=== PATIENT | male | born 1960 | race Caucasian/White ===

== ENCOUNTER 2020-10-03 00:33 | Emergency (ER) | payer OTHER, SELFPAY ==
[2020-10-03 00:42] VITALS: BP 159/104; PULSE 94; RESP 18; TEMP 36.8; O2SAT 97
--- NOTE | 2020-10-03 03:32 | ED.WOUNDLAC ---
HPI - Wound/Laceration General Chief Complaint: Wound/Laceration Stated Complaint: left hand laceration - works on [employer] Time Seen by Provider: 10/03/20 03:32 Source: patient Mode of arrival: Ambulatory History of Present Illness HPI narrative: 60-year-old gentleman with no significant medical history presents noting laceration over the 1st knuckle of the left hand sustained while he was at work on the [employer] this evening. He describes a sharp piece of metal cutting into his hand. He has no numbness and full strength and range of motion with the 1st finger. Related Data Previous Rx's Medication Instructions Recorded cephalexin 500 mg PO TID 7 Days #21 cap 10/03/20 Review of Systems Review of Systems Narrative: No fevers, chills, cough, abdominal pain, nausea, vomiting, diaphoresis Exam Narrative Exam Narrative: General: Alert appropriate in no acute distress Respiratory: Able to speak in full sentences, no obvious respiratory distress Skin: No obvious rashes, warm and dry Neurologic: Grossly intact no obvious asymmetries or abnormalities Psych: appropriate insight and affect, cooperative Extremity: 3cm lac to dorsum of left hand, over first knuckle. Laceration does involve the fascial sheath over the flexor tendon of the 1st finger but the tendon itself is completely intact. Initial Vital Signs Initial Vital Signs: Vital Signs Temperature 98.2 F 10/03/20 00:42 Pulse Rate 94 H 10/03/20 00:42 Respiratory Rate 18 10/03/20 00:42 Blood Pressure 159/104 H 10/03/20 00:42 Pulse Oximetry 97 10/03/20 00:42 Procedures Laceration Repair left hand: Site: hand Side (If applicable): left Size (cm): 3 Description: linear Depth: involves muscle layer Local Anesthetic: lidocaine 1% Amount of anesthesia used (mL): 5 Pre-repair: wound explored, irrigated extensively and deep structures intact (Vaginal she is over the tendon is disrupted but the tendon is intact) Skin layer closed with: nylon Size (cm): 4-0 Number of sutures: 4 Technique: simple, interrupted Course Orders Ordered: ED Orders 10/03/20 04:18 Urine Drug Screen, Rapid Stat Discontinued Medications Bacitracin (Bacitracin Oint 0.9 Gm Pckt) 1 applic TOP NOW ONE Stop: 10/03/20 03:37 Last Admin: 10/03/20 03:45 Dose: 1 applic Documented by: Diphtheria/Tetanus/Acell Pertussis (Tet,Diph,Pertuss(Acell),Vac/Pf 0.5 Ml Syringe) 0.5 ml IM .ONCE ONE Stop: 10/03/20 03:37 Last Admin: 10/03/20 03:45 Dose: 0.5 ml Documented by: Lidocaine/Sodium Bicarbonate (Lido 1%/Sod Bicarb 8.4% (10ml) 10 Ml Syringe) 10 ml INJ NOW ONE Stop: 10/03/20 03:37 Last Admin: 10/03/20 03:46 Dose: 10 ml Documented by: Vital Signs Vital signs: Vital Signs - 8 hr 10/03/20 00:42 Temperature 98.2 F Pulse Rate 94 H Respiratory Rate 18 Blood Pressure 159/104 H Pulse Oximetry 97 MDM - Wound/Laceration MDM Narrative Medical decision making narrative: 60-year-old gentleman with acute laceration to the back this hand. Tendon does not appear to be involved however with the tendon sheath violated he is placed on cephalexin for 7 days and clear the reviewed signs and symptoms of deeper infection. Tetanus status is updated. He tolerated procedure well and is safe for home discharge Discharge Plan Departure Patient Disposition: Home Clinical Impression: Laceration Instructions: DI for Laceration Repair Activity Restrictions/Additional Instructions: Thank you for coming in today You did have a a cut on the back of your left hand. It did not involve the tendon of the 1st finger itself but it did involve some of the tissue just covering the tendon. Because of that you are at higher risk for infection. I have given you a prescription for Keflex/cephalexin to take 3 times a day for the next week. If you notice increasing pain up your hand and the back of your wrist with moving her finger this can be a sign of deeper infection and you need to be evaluated. We did do a urine drug screen today at your request. This is not an official workplace drug screen, but it is what we do have available in the emergency department. You would need the stitches out on or about October 13. Your tetanus status was updated today as well I hope you heal quickly Prescriptions: New cephalexin 500 mg capsule 500 mg PO TID 7 Days Qty: 21 RF: 0
[2020-10-03] MEDS: TET,DIPH,PERTUSS(ACELL),VAC/PF 0.5 ML SYRINGE IM (03:45)
[2020-10-03] MEDS: BACITRACIN OINT 0.9 GM PCKT 1 APPLIC TOP (03:45)
[2020-10-03] MEDS: LIDO 1%/SOD BICARB 8.4% (10ML) 10 ML SYRINGE INJ (03:46)
[2020-10-03 04:24] VITALS: BP 150/99; PULSE 68; RESP 20; O2SAT 97
[2020-10-03 04:32] LABS: UR Morphine/Opiate cutoff 300 Negative (Negative); Ur Creatinine 20 (Normal); Ur Specific Gravity 1.025 (Normal); Urine Amphetamines Negative (Negative); Urine Barbiturates Negative (Negative); Urine Benzodiazepines Negative (Negative); Urine Cocaine Negative (Negative); Urine MDMA Negative (Negative); Urine Methadone Negative (Negative); Urine Methamphetamines Negative (Negative); Urine Oxycodone Negative (Negative); Urine Phencyclidine Negative (Negative); Urine Tetrahydrocannabinol Negative (Negative); Urine Tricyclic Antidepressant Negative (Negative); Urine pH 5 (Normal)
== END 2020-10-03 04:30 | disposition home or self-care (01) ==
PROVIDERS: Emergency Provider Emergency Medicine
DX: S61.412A Laceration without foreign body of left hand, initial encounter (principal); W26.8XXA Contact with other sharp object(s), not elsewhere classified, initial encounter; Z23 Encounter for immunization; Y99.0 Civilian activity done for income or pay
CPT/HCPCS: 13132; 80305; 90471; 99283; 99284; 90715